=== PATIENT | male | born 1985 | race Caucasian/White ===

== ENCOUNTER 2016-11-05 09:25 | Emergency (ER) | payer OTHER ==
[2016-11-05 09:40] VITALS: BP 131/81
--- NOTE | 2016-11-05 10:40 | UC ---
Respiratory Complaint HPI - HPI Summary HPI Summary: Patient is an otherwise healthy 31yo M presenting with 1 day runny nose, post- nasal drip, sore throat, mild cough, itchy eyes and diarrhea. He denies sick contacts. He was sent home from work today and wanted to make sure he did not have an infection. Afebrile. Denies N/V/C. Denies CAMPA, neck pain, back pain, SOB or chest pressure. Diarrhea is 1x episode and subsided. Denies other symptoms. He denies known allergies. - History of Current Complaint Chief Complaint: UCGeneralIllness Stated Complaint: COUGH,SINUSES,THROAT Time Seen by Provider: 11/05/16 10:11 Hx Obtained From: Patient Onset/Duration: Sudden Onset Timing: Constant Severity Initially: Moderate Severity Currently: Mild Pain Intensity: 0 Pain Scale Used: 0-10 Numeric Character: Cough: Nonproductive Aggravating Factors: Allergens Associated Signs And Symptoms: Positive: URI, Nasal Congestion, Sinus Discomfort - Risk Factors Pulmonary Embolism Risk Factors: Negative Cardiac Risk Factors: Negative Pseudomonas Risk Factors: Negative Tuberculosis Risk Factors: Negative - Allergies/Home Medications Allergies/Adverse Reactions: Allergies Allergy/AdvReac Type Severity Reaction Status Date / Time No Known Allergies Allergy Verified 11/05/16 09:40 PMH/Surg Hx/FS Hx/Imm Hx Previously Healthy: Yes - Surgical History Surgical History: None - Social History Occupation: Employed Full-time Lives: With Family Alcohol Use: None Substance Use Type: None Smoking Status (MU): Current Every Day Smoker Type: Smokeless Tobacco Amount Used/How Often: daily Length of Time of Smoking/Using Tobacco: 2001 Review of Systems Constitutional: Negative Skin: Negative Eyes: Other - itchy eyes ENT: Sore Throat, Nasal Discharge Respiratory: Cough Cardiovascular: Negative Gastrointestinal: Diarrhea Genitourinary: Negative Motor: Negative Neurological: Negative All Other Systems Reviewed And Are Negative: Yes Physical Exam Triage Information Reviewed: Yes Appearance: Well-Appearing, No Pain Distress, Well-Nourished Vital Signs: Initial Vital Signs Temp 98.0 F 11/05/16 09:35 Pulse 80 11/05/16 09:35 Resp 18 11/05/16 09:35 BP 131/81 11/05/16 09:35 Pulse Ox 99 11/05/16 09:35 Vital Signs Reviewed: Yes Eye Exam: Normal Eyes: Positive: Other: - cobblestoning in lower lids bilaterally ENT: Positive: Pharynx normal, Nasal congestion, Nasal drainage, TMs normal Neck exam: Normal Neck: Positive: Supple, No Lymphadenopathy Respiratory Exam: Normal Respiratory: Positive: Chest non-tender, Lungs clear, Normal breath sounds Cardiovascular Exam: Normal Cardiovascular: Positive: RRR Bowel Sounds: Positive: Present Musculoskeletal Exam: Normal Neurological Exam: Normal Neurological: Positive: Alert Psychological Exam: Normal Psychological: Positive: Normal Response To Family Skin Exam: Normal Diagnostic Evaluation - Laboratory O2 Sat by Pulse Oximetry: 99 Respiratory Course/Dx - Course Course Of Treatment: Patient presents with itchy eyes, runny nose, nasal congestion, cough and 1x episode, cobblestoning in lower lids bilaterally. Denies known allergies. Patient looks well on exam. Afebrile. Will treat for allergies with Claritin d/t symptoms and signs. Flonase prescribed. Patient to return for worsening symptoms. Patients Medications reviewed with patients. - Differential Dx/Diagnosis Differential Diagnosis/HQI/PQRI: Bronchitis, Laryngitis, Lower Resp Infection, Sinusitis Provider Diagnoses: Upper Respiratory Infection Discharge - Discharge Plan Condition: Stable Disposition: HOME Prescriptions: Fluticasone NASAL SPRAY 50MCG* [Flonase NASAL SPRAY 50MCG*] 2 spray BOTH NARES DAILY #1 btl Loratadine [Claritin 10 MG CAP] 10 mg PO DAILY #15 cap Patient Education Materials: Upper Respiratory Infection (ED) Referrals: Rupal Xiao MD [Primary Care Provider] - Additional Instructions: Humidifier in the home will help. Tylenol for discomfort. Take all medications as directed. Symptoms should resolve in 1-3 weeks. If symptoms become worse, please come back to or go to the ED. Continue with flonase and claritin as directed
== END 2016-11-05 10:28 | disposition home or self-care (01) ==
LOC: UCCORT 09:25
DX: J06.9 Acute upper respiratory infection, unspecified (principal); F17.210 Nicotine dependence, cigarettes, uncomplicated
CPT/HCPCS: 87651; 99211; G0463